=== PATIENT | male | born 1960 | race Two or more races ===

== ENCOUNTER 2021-07-14 12:35 | Outpatient (CLI) | payer MEDICARE, OTHER | END 2021-07-14 23:59 | disposition home or self-care (01) | LOC: WOU 12:35 | PROVIDERS: ATTEND Podiatrist Foot & Ankle Surgery | DX: Z47.89 Encounter for other orthopedic aftercare (principal); M14.671 Charcot's joint, right ankle and foot; R60.0 Localized edema; B35.1 Tinea unguium; F17.210 Nicotine dependence, cigarettes, uncomplicated | CPT/HCPCS: G0463 ==